=== PATIENT | male | born 1960 | race Asian ===

== ENCOUNTER 2018-06-30 18:23 | Emergency (ER) | payer OTHER ==
[~2018-06-30] VITALS: Ht 167.6 cm; Wt 68.0 kg
[2018-06-30 18:27] VITALS: Ht 167.6 cm; Wt 68.0 kg
[2018-06-30 19:05] LABS: BASOPHIL % 0.2 % (0-2); PLATELET COUNT 273 x10^3mcL (130-400); RED CELL DISTRIBUTION WIDTH 12.6 % (11.5-14.5)
[2018-06-30 19:24] LABS: CALCIUM 9.2 mg/dL (8.5-10.1); CHLORIDE SERUM 103 mmol/L (98-107); GFR1 > 60 mL/min; GLUCOSE SERUM 147 mg/dL (74-106); POTASSIUM SERUM 3.6 mmol/L (3.5-5.1); SODIUM SERUM 142 mmol/L (136-145)
[2018-06-30 19:29] LABS: ALBUMIN 4.8 g/dL (3.4-5.0); ALKALINE PHOSPHATASE 84 U/L (46-116); ALT/SGPT 24 U/L (16-63); AST/SGOT 18 U/L (15-37); BILIRUBIN TOTAL 0.74 mg/dL (0.20-1.00)
[2018-06-30 19:30] LABS: TOTAL PROTEIN, SERUM 8.7 g/dL (6.4-8.2)
[2018-06-30 21:18] LABS: UA SPECIFIC GRAVITY >=1.030 (1.005-1.035); microscopic required? YES; urine erythrocyte NEGATIVE (NEGATIVE)
[2018-06-30 21:44] LABS: AMPHETAMINE QUAL UR NONE DETECTED (See below)
[2018-06-30 22:25] VITALS: BP 157/99
== END 2018-06-30 22:25 | disposition home or self-care (01) ==
LOC: ED 18:23
PROVIDERS: Emergency Medicine
DX: F20.2 Catatonic schizophrenia (principal); F21 Schizotypal disorder
CPT/HCPCS: 36415; G0480; Q0092